=== PATIENT | female | born 1945 | race Caucasian/White ===

== ENCOUNTER → 2017-03-12 | Outpatient (CLI) | payer MEDICARE, MEDICAID ==
[~2017-03-12] VITALS: Ht 154.9 cm; Wt 73.5 kg
[~2017-03-12] MED LIST: CELE10TA PO; ESOM1CAP5 PO; HYDR-3713 PO; LEVO100T5 PO; LIDOCAINE 2% INJ 100 MG/5 ML SDV (FOR ANES.) As Ordered ONE; LOSA50TA20 PO; MELO7.5T7 PO; NS 1,000 ML IV ONE; PROPOFOL 200 MG/20 ML VIAL As Ordered ONE; SUCR1TA PO; TRAM50TA2 PO
--- NOTE | 2017-03-12 13:57 | ROOR ---
Patient Name: Sheron Francisco Procedure Date: 03/12/2017 1:36 PM Date of : 1945 Age: 71 Room: [facility] Gender: Female Note Status: Finalized Procedure: Upper GI endoscopy + Ferguson Ph Probe Indications: Heartburn, Failure to respond to medical treatment Providers: Pravin Stewart MD Referring MD: Dedra Barrios MD Requesting Provider: Medicines: Monitored Anesthesia Care Complications: No immediate complications. Procedure: Pre-Anesthesia Assessment: - The heart rate, respiratory rate, oxygen saturations, blood pressure, adequacy of pulmonary ventilation, and response to care were monitored throughout the procedure. The Endoscope was introduced through the mouth, and advanced to the second part of duodenum. The upper GI endoscopy was accomplished without difficulty. The patient tolerated the procedure well. Findings: The Z-line was regular and was found 35 cm from the incisors. A small hiatal hernia was present. The FERGUSON capsule with delivery system was introduced through the mouth and advanced into the esophagus, such that the FERGUSON pH capsule was positioned 30 cm from the incisors, which was 5 cm proximal to the GE junction. The FERGUSON pH capsule was then deployed and attached to the esophageal mucosa. The delivery system was then withdrawn. Endoscopy was utilized for probe placement and diagnostic evaluation. No other significant abnormalities were identified in a careful examination of the stomach. The exam of the duodenum was otherwise normal. No other significant abnormalities were identified in a careful examination of the stomach. The exam of the duodenum was otherwise normal. Impression: - Z-line regular, 35 cm from the incisors. - Small hiatal hernia. - No specimens collected. - The examination was otherwise normal. Recommendation: - Patient has a contact number available for emergencies. The signs and symptoms of potential delayed complications were discussed with the patient. Return to normal activities tomorrow. Written discharge instructions were provided to the patient. - Resume previous diet. - Discharge patient to home. - Follow an antireflux regimen. - Continue present medications. - Return to referring physician. - The findings and recommendations were discussed with the patient's family. Pravin Stewart MD Pravin Stewart MD 03/12/2017 1:57:30 PM This report has been signed electronically. Number of Addenda: 0 Note Initiated On: 03/12/2017 1:36 PM Estimated Blood Loss: Estimated blood loss: none. Estimated blood loss: none.
[2017-03-12 14:15] VITALS: BP 184/77
== END | disposition home or self-care (01) ==
LOC: M OPP 12:34
PROVIDERS: ATTEND Internal Medicine Gastroenterology
DX: K44.9 Diaphragmatic hernia without obstruction or gangrene (principal); I10 Essential (primary) hypertension; M19.90 Unspecified osteoarthritis, unspecified site; E07.9 Disorder of thyroid, unspecified; E78.00 Pure hypercholesterolemia, unspecified; C50.912 Malignant neoplasm of unspecified site of left female breast; Z79.899 Other long term (current) drug therapy; Z88.2 Allergy status to sulfonamides; Z88.1 Allergy status to other antibiotic agents

== ENCOUNTER → 2017-08-16 | Day surgery (SDC) | payer MEDICARE, MEDICAID ==
[~2017-08-16] MED LIST changes: -CELE10TA PO; -ESOM1CAP5 PO; -HYDR-3713 PO; -LEVO100T5 PO; +LIDOCAINE 1% MDV 20ML VIAL SC; +LIDOCAINE 2% INJ 100 MG/5 ML SDV (FOR ANES.) As Ordered; -LIDOCAINE 2% INJ 100 MG/5 ML SDV (FOR ANES.) As Ordered ONE; -LOSA50TA20 PO; +LR 1,000 ML IV; -MELO7.5T7 PO; +MIDAZOLAM INJ 2 MG/2 ML VIAL (J2250) As Ordered; +NORCO, ANEXSIA 5/325MG TABLET (HYDROcodone/ACETAMINOPHEN) PO; -NS 1,000 ML IV ONE; +ONDANSETRON 4MG/2ML VIAL (J2405) IV; +PROPOFOL 200 MG/20 ML VIAL As Ordered; -PROPOFOL 200 MG/20 ML VIAL As Ordered ONE; -SUCR1TA PO; -TRAM50TA2 PO; +fentaNYL 100 MCG/2 ML INJECTION (J3010) As Ordered; +fentaNYL 100 MCG/2 ML INJECTION (J3010) IV
[2017-08-16] MEDS: CIPRODEX OTIC SUSP 7.5ML As Ordered (16:33)
== END | disposition home or self-care (01) ==
LOC: M SDC 11:51
DX: H69.93 Unspecified Eustachian tube disorder, bilateral (principal); E03.9 Hypothyroidism, unspecified; I10 Essential (primary) hypertension; K21.9 Gastro-esophageal reflux disease without esophagitis; E78.00 Pure hypercholesterolemia, unspecified; K44.9 Diaphragmatic hernia without obstruction or gangrene; M12.9 Arthropathy, unspecified; M54.9 Dorsalgia, unspecified; F41.9 Anxiety disorder, unspecified; F32.9 Major depressive disorder, single episode, unspecified; R51 Headache; Z88.1 Allergy status to other antibiotic agents; Z88.2 Allergy status to sulfonamides; Z79.899 Other long term (current) drug therapy; Z90.12 Acquired absence of left breast and nipple; Z85.3 Personal history of malignant neoplasm of breast
CPT/HCPCS: 69436

== ENCOUNTER 2018-08-15 07:44 | Day surgery (SDC) | payer MEDICARE, MEDICAID ==
[2018-08-15 08:26] LABS: HEMATOCRIT 41.9 % (36.0-47.0); HEMOGLOBIN 13.7 g/dl (12.0-15.5); MEAN CORPUSCULAR HEMOGLOBIN 30.4 pg (27.0-33.0); MEAN CORPUSCULAR HGB CONC 32.7 g/dl (32.0-36.5); MEAN CORPUSCULAR VOLUME 92.9 fl (80.0-96.0); PLATELET COUNT, AUTOMATED 253 10^3/uL (150-450); RED BLOOD COUNT 4.51 10^6/uL (4.00-5.40); RED CELL DISTRIBUTION WIDTH 12.5 % (11.5-14.5); WHITE BLOOD COUNT 6.3 10^3/uL (4.0-10.0)
[2018-08-15 08:43] LABS: ANION GAP 8 MEQ/L (8-16); BLOOD UREA NITROGEN 13 MG/DL (7-18); CALCIUM LEVEL 9.1 MG/DL (8.8-10.2); CARBON DIOXIDE LEVEL 24 MEQ/L (21-32); CHLORIDE LEVEL 107 MEQ/L (98-107); CREATININE FOR GFR 0.75 MG/DL (0.55-1.30); GLOMERULAR FILTRATION RATE > 60.0 (>39); GLUCOSE, FASTING 92 MG/DL (70-100); POTASSIUM SERUM 4.1 MEQ/L (3.5-5.1); SODIUM LEVEL 139 MEQ/L (136-145)
[2018-08-15] MEDS ORDERED: LR 1,000 ML IV ×3 (08:45→10:45)
[2018-08-15] MEDS ORDERED: PROPOFOL 200 MG/20 ML VIAL As Ordered ×2 (09:38)
[2018-08-15] MEDS ORDERED: LIDOCAINE 2% INJ 100 MG/5 ML SDV (FOR ANES.) As Ordered (09:39)
[2018-08-15] MEDS ORDERED: MIDAZOLAM INJ 2 MG/2 ML VIAL (J2250) As Ordered (09:40)
[2018-08-15] MEDS ORDERED: fentaNYL 100 MCG/2 ML INJECTION (J3010) As Ordered (09:40)
[2018-08-15] MEDS ORDERED: dexameTHASONE 4 MG/ML 1ML VIAL (J1100) As Ordered (09:57)
[2018-08-15] MEDS ORDERED: ONDANSETRON 4MG/2ML VIAL (J2405) As Ordered (09:57)
[2018-08-15] MEDS: CIPRODEX OTIC SUSP 7.5ML As Ordered (10:04)
[2018-08-15] MEDS ORDERED: GLYCOPYRROLATE INJ 0.2 MG/ML 2 ML VIAL As Ordered (10:19)
[2018-08-15] MEDS ORDERED: ONDANSETRON 4MG/2ML VIAL (J2405) IV (10:45)
[2018-08-15] MEDS: PERCOCET 5MG/325MG TAB PO (10:45)
[2018-08-15] MEDS ORDERED: fentaNYL 100 MCG/2 ML INJECTION (J3010) IV (10:45)
== END 2018-08-15 12:00 | disposition home or self-care (01) ==
LOC: M SDC 07:44
DX: H69.83 Other specified disorders of Eustachian tube, bilateral (principal); I10 Essential (primary) hypertension; E78.5 Hyperlipidemia, unspecified; E03.9 Hypothyroidism, unspecified; F41.9 Anxiety disorder, unspecified; Z79.899 Other long term (current) drug therapy; Z88.2 Allergy status to sulfonamides
CPT/HCPCS: 69436

== ENCOUNTER → 2019-06-04 | Outpatient (CLI) | payer MEDICARE, MEDICAID ==
[~2019-06-04] MED LIST changes: +BIOT10008 PO; +BIOT50004 PO; +BIOTCAP PO; +CELE10TA PO; +CITA10TA6 PO; +CO Q30CA PO; +ESOM1CAP5 PO; +HYDR-3713 PO; +ISOVUE-370 76% 100ML VIAL (Q9967) As Ordered ONE; +KRIL1CAP6 PO; +LEVO100T5 PO; -LIDOCAINE 1% MDV 20ML VIAL SC; -LIDOCAINE 2% INJ 100 MG/5 ML SDV (FOR ANES.) As Ordered; +LIPI20TA PO; +LOSA50TA88 PO; -LR 1,000 ML IV; +MAGN250T3 PO; +MELO7.5T7 PO; -MIDAZOLAM INJ 2 MG/2 ML VIAL (J2250) As Ordered; +NATU400T PO; -NORCO, ANEXSIA 5/325MG TABLET (HYDROcodone/ACETAMINOPHEN) PO; -ONDANSETRON 4MG/2ML VIAL (J2405) IV; -PROPOFOL 200 MG/20 ML VIAL As Ordered; +SUCR1TA PO; +TRAM50TA2 PO; +VITA100067 PO; +VITA200T4 PO; -fentaNYL 100 MCG/2 ML INJECTION (J3010) As Ordered; -fentaNYL 100 MCG/2 ML INJECTION (J3010) IV
--- NOTE | 2019-06-04 15:32 | REP ---
Soft-tissue neck CT study with IV contrast: History: Localized swelling, mass and lump. Right-sided swelling. Right-sided neck pain. Symptoms for [address] contrast dose: 75 ml of intravenous Isovue 370. CT findings: Preliminary digital flatbed driver radiographs are unremarkable. Parotid and submandibular glands are normal and symmetric. Thyroid lobes are tiny, question surgical absence. There is no evidence of neck mass or adenopathy. The internal carotid arteries are tortuous bilaterally, particularly the right common carotid artery segment and bilateral internal carotid artery segments. No other vascular abnormality is appreciated. No cyst or malformation is seen. Glottic and subglottic airway are unremarkable. Tongue base and floor of mouth structures appear intact. No bony destructive lesion is seen. Visualized paranasal sinuses are clear. Impression: No neck mass or adenopathy is seen. Tortuous carotid arteries bilaterally. Otherwise negative. Electronically Signed by Kyle Sheppard MD 06/04/2019 03:56 P
== END ==
LOC: M RAD 13:58
PROVIDERS: ATTEND Physician Assistant Medical
DX: R22.1 Localized swelling, mass and lump, neck (principal); I65.23 Occlusion and stenosis of bilateral carotid arteries
CPT/HCPCS: 70491; Q9967

== ENCOUNTER → 2020-03-06 | Outpatient (CLI) | payer MEDICARE, MEDICAID ==
[~2020-03-06] MED LIST changes: +BIOT10009 PO; +BUPR150T3 PO; +CO Q200C10 PO; +D31000TA2 PO; -ISOVUE-370 76% 100ML VIAL (Q9967) As Ordered ONE; +LEVO88TA3 PO; +OMEP40CA97 PO; +TIZA2CAP PO; +VITA100020 PO
== END ==
LOC: M LABSMTC 10:00
PROVIDERS: ATTEND Anesthesiology
DX: Z01.818 Encounter for other preprocedural examination (principal); Z11.59 Encounter for screening for other viral diseases
CPT/HCPCS: C9803; U0003

== ENCOUNTER 2020-03-11 08:28 | Day surgery (SDC) | payer MEDICARE, MEDICAID ==
[~2020-03-11] VITALS: Ht 152.4 cm; Wt 72.6 kg
[~2020-03-11 08:28] MED LIST changes: -D31000TA2 PO; +VITAD1000T PO
[2020-03-11] MEDS ORDERED: dexameTHASONE 4 MG/ML 1ML VIAL (J1100 PER 1MG) IV ONE (09:00)
[2020-03-11] MEDS ORDERED: SCOPOLAMINE 1MG TRANSDERMAL PATCH As Ordered ONE (09:32)
[2020-03-11] MEDS ORDERED: LR 1,000 ML IV ONE (09:45)
[2020-03-11] MEDS ORDERED: SCOPOLAMINE 1MG TRANSDERMAL PATCH TOP ONE (09:45)
[2020-03-11] MEDS ORDERED: CIPRODEX OTIC SUSP 7.5ML As Ordered ONE (09:54)
[2020-03-11] MEDS ORDERED: OXYMETAZOLINE 0.05% NASAL SPRAY (AFRIN) As Ordered ONE (09:55)
[2020-03-11] MEDS ORDERED: METHYLENE BLUE 0.5% (5MG/ML) 10 ML AMP (PROVAYBLUE) As Ordered ONE (09:55)
[2020-03-11] MEDS ORDERED: fentaNYL 100 MCG/2 ML INJECTION (J3010) As Ordered ONE (10:17)
[2020-03-11] MEDS ORDERED: LIDOCAINE 2% 100MG/5ML SDV (FOR ANES.) As Ordered ONE (10:17)
[2020-03-11] MEDS ORDERED: MIDAZOLAM INJ 2MG/2ML VIAL (J2250 PER 1MG) As Ordered ONE (10:17)
[2020-03-11] MEDS ORDERED: ONDANSETRON 4MG/2ML VIAL As Ordered ONE (10:17)
[2020-03-11] MEDS ORDERED: propofoL 200 MG/20 ML VIAL As Ordered ONE (10:17)
[2020-03-11] MEDS ORDERED: EPINEPHrine 1MG/ML INJ 30ML MD-VIAL As Ordered ONE (10:48)
[2020-03-11] MEDS ORDERED: hydrALAZINE 20MG/ML 1ML VIAL (J0360 PER 20MG) As Ordered ONE (11:11)
[2020-03-11] MEDS: oxyCODONE 5MG TAB PO PRN ×2 (11:41→12:11)
[2020-03-11] MEDS ORDERED: HYDROMORPHONE HCL 0.5 MG/ 0.5 ML SYRINGE (J1170 PER 1) IV PRN (11:45)
[2020-03-11] MEDS ORDERED: ONDANSETRON 4MG/2ML VIAL IV PRN (11:45)
[2020-03-11] MEDS ORDERED: LR 1,000 ML IV SCH (11:45)
[2020-03-11] MEDS ORDERED: fentaNYL 100 MCG/2 ML INJECTION (J3010) IV PRN (11:45)
[2020-03-11 13:05] VITALS: BP 162/72
== END 2020-03-11 13:30 | disposition home or self-care (01) ==
LOC: M SDC 08:28
PROVIDERS: ATTEND Otolaryngology
DX: H69.81 Other specified disorders of Eustachian tube, right ear (principal); H65.21 Chronic serous otitis media, right ear; I10 Essential (primary) hypertension; E03.9 Hypothyroidism, unspecified; K44.9 Diaphragmatic hernia without obstruction or gangrene; K21.9 Gastro-esophageal reflux disease without esophagitis; G47.30 Sleep apnea, unspecified; F41.9 Anxiety disorder, unspecified; F32.9 Major depressive disorder, single episode, unspecified; Z79.899 Other long term (current) drug therapy
CPT/HCPCS: 69436; 69799; J0360; J1100; J2250; J2405; J3010; Q9968

== ENCOUNTER → 2021-04-01 | Outpatient (CLI) | payer MEDICARE, MEDICAID ==
[~2021-04-01] MED LIST changes: +BUPR150T12 PO; -BUPR150T3 PO; +D31000TA2 PO; +GABA-282 PO; +OMEP40CA4 PO; -OMEP40CA97 PO; +PANT40TA29 PO; -VITAD1000T PO
== END ==
LOC: M LABSMTC 10:30
PROVIDERS: ATTEND Anesthesiology
DX: Z01.818 Encounter for other preprocedural examination (principal)

== ENCOUNTER 2021-04-06 08:23 | Day surgery (SDC) | payer MEDICARE, MEDICAID ==
[~2021-04-06] VITALS: Ht 152.4 cm; Wt 68.0 kg
[~2021-04-06 08:23] MED LIST changes: +NS 1,000 ML IV ONE
[2021-04-06] MEDS ORDERED: COCO1000 PO (09:07)
[2021-04-06] MEDS ORDERED: GINKOBA PO (09:07)
[2021-04-06] MEDS ORDERED: DITR5TAB PO (09:07)
--- NOTE | 2021-04-06 10:00 | ROOR ---
Patient Name: Sheron Francisco Procedure Date: 04/06/2021 9:42 AM Date of : 1945 Age: 75 Room: [facility] Gender: Female Note Status: Finalized Procedure: Upper Endoscopy + Biopsies Indications: Epigastric abdominal pain, Heartburn Providers: Pravin Stewart MD Referring MD: Dedra Barrios MD Requesting Provider: Medicines: Monitored Anesthesia Care Complications: No immediate complications. Procedure: Pre-Anesthesia Assessment: - The heart rate, respiratory rate, oxygen saturations, blood pressure, adequacy of pulmonary ventilation, and response to care were monitored throughout the procedure. The Endoscope was introduced through the mouth, and advanced to the second part of duodenum. The upper GI endoscopy was accomplished without difficulty. The patient tolerated the procedure well. Findings: The Z-line was regular and was found 35 cm from the incisors. Multiple biopsies were obtained with cold forceps for evaluation to rule out Lamar's Esophagus randomly at the gastroesophageal junction. No other significant abnormalities were identified in a careful examination of the stomach. Biopsies were taken with a cold forceps in the gastric antrum for Helicobacter pylori testing. The exam of the duodenum was otherwise normal. Impression: - Z-line regular, 35 cm from the incisors. - Multiple biopsies were obtained at the gastroesophageal junction. - Biopsies were taken with a cold forceps for Helicobacter pylori testing. - The examination was otherwise normal. Recommendation: - Patient has a contact number available for emergencies. The signs and symptoms of potential delayed complications were discussed with the patient. Return to normal activities tomorrow. Written discharge instructions were provided to the patient. - High fiber diet. - Discharge patient to home. - Continue present medications. - Await pathology results. - Telephone GI clinic for pathology results in 1 week. - The findings and recommendations were discussed with the patient's family. Procedure Code(s): --- Professional --- 20889, Esophagogastroduodenoscopy, flexible, transoral; with biopsy, single or multiple Diagnosis Code(s): --- Professional --- R10.13, Epigastric pain R12, Heartburn CPT copyright 2019 [employer]. All rights reserved. The codes documented in this report are preliminary and upon varnish finisher review may be revised to meet current compliance requirements. Pravin Stewart MD Pravin Stewart MD 04/06/2021 9:59:30 AM Electronically signed by Pravin Stewart MD Number of Addenda: 0 Note Initiated On: 04/06/2021 9:42 AM Estimated Blood Loss: Estimated blood loss: none.
[2021-04-06] MEDS ORDERED: LIDOCAINE 2% 100MG/5ML SDV (FOR ANES.) As Ordered ONE (10:20)
[2021-04-06] MEDS ORDERED: propofoL 200 MG/20 ML VIAL As Ordered ONE (10:20)
[2021-04-06 10:25] VITALS: BP 128/60
== END 2021-04-06 10:30 | disposition home or self-care (01) ==
LOC: M OPP 08:23
PROVIDERS: ATTEND Internal Medicine Gastroenterology
DX: K29.50 Unspecified chronic gastritis without bleeding (principal); R10.13 Epigastric pain; G47.30 Sleep apnea, unspecified; Z79.899 Other long term (current) drug therapy; Z88.1 Allergy status to other antibiotic agents; Z88.2 Allergy status to sulfonamides; Z87.891 Personal history of nicotine dependence